=== PATIENT | female | born 1930 | race Caucasian/White ===

== ENCOUNTER 2017-04-17 12:27 | Observation (INO) | payer MEDICARE ==
--- NOTE | 2017-04-17 14:34 | RAD ---
HISTORY: Right calf pain COMPARISONS: None relevant TECHNIQUE: Multiple transverse and longitudinal ultrasound images were obtained of the right lower extremity from the level of the common femoral vein inferiorly through to the infrapopliteal veins using grayscale, color Doppler, and spectral Doppler imaging with and without compression and with augmentation. Comparison images were obtained of the contralateral common femoral vein. FINDINGS: VEINS: The venous system of the right lower extremity is compressible throughout its course, with normal flow on color Doppler imaging and normal response to augmentation on spectral Doppler imaging. SOFT TISSUES: Unremarkable. OTHER FINDINGS: None. IMPRESSION: NO RIGHT LOWER EXTREMITY DEEP VEIN THROMBOSIS
[2017-04-17] MEDS ORDERED: traMADol TAB* 50 MG PO ONE (14:51)
--- NOTE | 2017-04-17 14:53 | RAD ---
HISTORY: Unable to ambulate COMPARISONS: None VIEWS: 1, Single frontal view of the pelvis FINDINGS: BONE DENSITY: There is diffuse osteopenia. BONES: There is no displaced fracture. JOINTS: There is osteoarthritis of the hips and SI joints ALIGNMENT: There is no dislocation. SOFT TISSUES: Unremarkable. OTHER FINDINGS: None. IMPRESSION: OSTEOARTHRITIS. NO ACUTE OSSEOUS INJURY. IF SYMPTOMS PERSIST, RECOMMEND REPEAT IMAGING.
--- NOTE | 2017-04-17 14:54 | RAD ---
HISTORY: Right leg pain, unable to ambulate COMPARISONS: None VIEWS: 3, frontal and lateral views of the right foreleg FINDINGS: BONE DENSITY: There is diffuse osteopenia. BONES: There is osteoarthritis of the knee and ankle JOINTS: There is no arthropathy. ALIGNMENT: There is no dislocation. SOFT TISSUES: Unremarkable. OTHER FINDINGS: None. IMPRESSION: OSTEOPENIA. OSTEOARTHRITIS. NO ACUTE OSSEOUS INJURY. THE DEGREE OF OSTEOPENIA MAY MAKE A NONDISPLACED FRACTURE RADIOGRAPHICALLY OCCULT. IF SYMPTOMS PERSIST, RECOMMEND REPEAT IMAGING.
--- NOTE | 2017-04-17 14:55 | RAD ---
HISTORY: Right leg pain, unable to ambulate COMPARISONS: Pelvis dated April 17, 2017 VIEWS: 4, Frontal and lateral views of the right femur FINDINGS: BONE DENSITY: There is diffuse osteopenia. BONES: There is no displaced fracture. JOINTS: There is osteoarthritis of the right hip and right knee. ALIGNMENT: There is no dislocation. SOFT TISSUES: Unremarkable. OTHER FINDINGS: None. IMPRESSION: OSTEOPENIA. NO RADIOGRAPHIC EVIDENCE FOR HIP FRACTURE. X-RAYS MAY BE NEGATIVE WITH NONDISPLACED HIP FRACTURE, IF THERE IS PERSISTENT CLINICAL CONCERN, RECOMMEND CONSIDERATION OF MRI. IN THE SETTING OF CONTRAINDICATION TO MRI OR LIMITATION IN EMERGENT ACCESS TO MRI, CT WOULD BE SUGGESTED.
--- NOTE | 2017-04-17 16:09 | RAD ---
HISTORY: Proximal tibial pain COMPARISONS: None TECHNIQUE: Multiple contiguous axial CT images are obtained of the right lower extremity, from the distal femur through the proximal tibia covering the knee, with coronal and sagittal multiplanar reconstructions, without intravenous contrast administration. FINDINGS: BONE DENSITY: There is diffuse osteopenia. BONES: There is no displaced fracture. JOINTS: There is tricompartmental osteoarthritis. There is no suprapatellar joint effusion or lipohemarthrosis. There is chondrocalcinosis. MUSCULATURE: Unremarkable ALIGNMENT: There is no dislocation. SOFT TISSUES: Unremarkable. OTHER FINDINGS: None. IMPRESSION: 1. OSTEOPENIA. 2. OSTEOARTHRITIS. 3. CHONDROCALCINOSIS. 4. NO ACUTE OSSEOUS INJURY. IF SYMPTOMS PERSIST, RECOMMEND REPEAT IMAGING.
[2017-04-17] MEDS ORDERED: traMADol TAB* 50 MG PO PRN (17:45)
[2017-04-17] MEDS ORDERED: Acetaminophen TAB* 325 MG PO PRN (17:48)
--- NOTE | 2017-04-17 18:32 | ED ---
Zion Cole Rebecca, scribed for Jakob Pérez MD on 04/17/17 at 1302 . Lower Extremity - HPI Summary HPI Summary: Pt is an 86 y/o F who presents to ED c/o R calf pain. Per daughter, pain began 2 days ago, worsening today. Starting this morning, she was unable to walk due to the pain. Pain is discrete to the R calf without radiation to the buttock or back. Daughter applied heat for 20 minutes 2 days ago, which did not alleviate sx. Sx aggravated by walking, alleviated by rest. Is not on any blood thinners. - History of Current Complaint Chief Complaint: EDHipPelvisInjury Stated Complaint: UNABLE TO WALK Time Seen by Provider: 04/17/17 12:34 Hx Obtained From: Patient, Family/Manager English - Daughter Onset of Pain: Days - 2 days Onset/Duration: Still Present Pain Intensity: 0 Location: Is Discrete @ - R calf without radiation Aggravating Factor(s): Standing Alleviating Factor(s): Rest Able to Bear Weight: No - Allergies/Home Medications Allergies/Adverse Reactions: Allergies Allergy/AdvReac Type Severity Reaction Status Date / Time PACEMAKER-NO MRIs Allergy PACEMAKER-NO Uncoded 10/24/15 13:57 MRIs PMH/Surg Hx/FS Hx/Imm Hx Endocrine/Hematology History: Denies: Hx Diabetes Cardiovascular History: Reports: Hx Coronary Artery Disease, Hx Hypercholesterolemia, Hx Hypertension, Hx [facility] - NO MRIs, Other Cardiovascular Problems/Disorders - LBBB GI History: Reports: Hx Gall Bladder Disease History: Reports: Hx Kidney Stones Sensory History: Reports: Hx Cataracts, Hx Contacts or Glasses - GLASSES, Hx Hearing Problem - pt is [place] Denies: Hx Hearing Aid - HARD OF HEARING- OK IF TALK SLOW AND NOT SCREAM Opthamlomology History: Reports: Hx Cataracts, Hx Contacts or Glasses - GLASSES - Surgical History Surgery Procedure, Year, and Place: [id number]. APPENDECTOMY. [facility] 1977,. BLADDER SUSPENSION 1987. [place] [facility] [place] Anesthesia Reactions: No - Immunization History Date of Tetanus Vaccine: unknown Date of Influenza Vaccine: 2-3 years ago Infectious Disease History: No Infectious Disease History: Denies: Traveled Outside the [place] in Last 30 Days - Family History Known Family History: Positive: Cardiac Disease, Other - Brain CA, CVA - Social History Alcohol Use: None Substance Use Type: Reports: None Smoking Status (MU): Former Smoker Type: Cigarettes Amount Used/How Often: 1 PPD OR LESS X 20 YEARS Have You Smoked in the Last Year: No Review of Systems Negative: Fever Positive: Myalgia - R calf pain without radiation All Other Systems Reviewed And Are Negative: Yes Physical Exam - Summary Physical Exam Summary: General: well-appearing, no pain distress Skin: warm, color reflects adequate perfusion, dry Head: normal Eyes: EOMI, [place] ENT: She is hard of hearing Neck: supple, nontender Respiratory: CTA, breath sounds present Cardiovascular: RRR Abdomen: soft, nontender Bowel: present Musculoskeletal: strength/ROM intact, tender in the upper calf, the knee does not appear swollen, pain with ROM of the R leg with good capillary refill Neurological: normal, sensory/motor intact, A&O x3 Psychological: affect/mood appropriate Triage Information Reviewed: Yes Vital Signs On Initial Exam: Initial Vitals Temp Pulse Resp BP Pulse Ox 97.5 F 69 18 139/71 95 04/17/17 12:31 04/17/17 12:31 04/17/17 12:31 04/17/17 12:31 04/17/17 12:31 Vital Signs Reviewed: Yes - Merna Coma Scale Coma Scale Total: 15 Diagnostics - Vital Signs Vital Signs Temp Pulse Resp BP Pulse Ox 04/17/17 12:31 97.5 F 69 18 139/71 95 - Laboratory Lab Statement: Any lab studies that have been ordered have been reviewed, and results considered in the medical decision making process. - Radiology R Femur XR Xray Interpretation: No Acute Changes - OSTEOPENIA. NO RADIOGRAPHIC EVIDENCE FOR HIP FRACTURE. X-RAYS MAY BE NEGATIVE WITH NONDISPLACED HIP FRACTURE, IF THERE IS PERSISTENT CLINICAL CONCERN, RECOMMEND CONSIDERATION OF MRI. IN THE SETTING OF CONTRAINDICATION TO MRI OR LIMITATION IN EMERGENT ACCESS TO MRI, CT WOULD BE SUGGESTED. Radiology Interpretation Completed By: Radiologist R Lower Leg XR Xray Interpretation: No Acute Changes - OSTEOPENIA. OSTEOARTHRITIS. NO ACUTE OSSEOUS INJURY. THE DEGREE OF OSTEOPENIA MAY MAKE A NONDISPLACED FRACTURE RADIOGRAPHICALLY OCCULT. IF SYMPTOMS PERSIST, RECOMMEND REPEAT IMAGING. Radiology Interpretation Completed By: Radiologist Pelvic XR Xray Interpretation: No Acute Changes - OSTEOARTHRITIS. NO ACUTE OSSEOUS INJURY. IF SYMPTOMS PERSIST, RECOMMEND REPEAT IMAGING. Radiology Interpretation Completed By: Radiologist - CT Right LE CT CT Interpretation: No Acute Changes - 1. OSTEOPENIA. 2. OSTEOARTHRITIS. 3. CHONDROCALCINOSIS. 4. NO ACUTE OSSEOUS INJURY. IF SYMPTOMS PERSIST, RECOMMEND REPEAT IMAGING. CT Interpretation Completed By: Radiologist - Ultrasound No standard instances Ultrasound Interpretation: No Acute Changes - Venous Doppler Study: NO RIGHT LOWER EXTREMITY DEEP VEIN THROMBOSIS Ultrasound Interpretation Completed By: Radiologist Re-Evaluation - Re-Evaluation First Eval Re-Evaluation Time: 14:46 Comment: Discussed venous doppler study results with the pt. Second Eval Re-Evaluation Time: 15:24 Comment: Discussed XR results with the pt. Lower Extremity Course/Dx - Course Assessment/Plan: Pt is an 86 y/o F who presents to ED c/o R calf pain. Per daughter, pain began 2 days ago, worsening today. Starting this morning, she was unable to walk due to the pain. Pain is discrete to the R calf without radiation to the buttock or back. Daughter applied heat for 20 minutes 2 days ago, which did not alleviate sx. Sx aggravated by walking, alleviated by rest. Is not on any blood thinners. Venous doppler study, R femur XR, R lower leg XR and pelvic XR all reveal no acute findings. Right LE CT reveals no acute findings. In the ED course, pt was administered Ultram. Discussed care of pt with Dr. Lenore Babin who accepts pt for admission. PATIENT UNABLE TO AMBULATE. DAUGHTER REPORTS SHE IS UNABLE TO CARE FOR HER MOTHER AT HOME. ADMIT HOSPITALIST STABLE. - Diagnoses Provider Diagnoses: Leg pain, right, Unable to ambulate - Physician Notifications Discussed Care Of Patient With: Lenore Babin Time Discussed With Above Provider: 16:58 Instructed by Provider To: Other - Accepts pt for admission Discharge - Discharge Plan Condition: Stable Disposition: ADMITTED TO [facility] Referrals: Frederick Gallardo DO [Primary Care Provider] - The documentation as recorded by the Zion triana Rebecca accurately reflects the service I personally performed and the decisions made by me, Jakob Pérez MD.
[2017-04-17] MEDS ORDERED: Gabapentin CAP(*) 300 MG PO ONE (20:00)
[2017-04-17] MEDS: traMADol TAB* 50 MG PO PRN (20:07)
[2017-04-17] MEDS: Metoprolol Tartrate TAB* 25 MG PO SCH (20:09)
--- NOTE | 2017-04-17 22:12 | HP ---
CC: Frederick Gallardo DO HISTORY AND PHYSICAL: DATE OF ADMISSION: 04/17/17 PRIMARY CARE PHYSICIAN: Frederick Gallardo DO CHIEF COMPLAINT: Right lower extremity pain. HISTORY OF PRESENT ILLNESS: Ms. Javier is an 86-year-old female with a past medical history of atri al fibrillation, status post pacemaker placement, left bundle-branch block, psoriasis, presented to the hospital with right lower extremity pain. The patient is hard of hearing. History is obtained from her and her daughter, Kaitlyn, who is at the bedside and lives with the patient. Apparently, th e patient was in her usual state of health until about 2 to 3 days ago. The patient's daughter stat es that the patient started to complain of right posterior leg pain, some on the calf area. At firs t, this was just mild and annoying; however, in the past couple of days, it seems to have progressed . The patient did not have any trauma and there is no erythema or swelling on the leg. She has been taking Tylenol at home that the patient states seemed to help although the daughter does not feel t hat it did. Yesterday, they had tried a heating pad and the patient reclined for the lot of the day and was resting. However, the pain progressed and this morning she states it was difficult to even walk, so she came to the hospital for further evaluation. The patient has not had any associated f conchita, chest pain, shortness of breath, swelling of the legs. She has been eating a bit less in the past month, but has been drinking well. No nausea or vomiting. PAST MEDICAL HISTORY: AFib, status post pacemaker placement; left bundle-branch block; psoriasis. PAST SURGICAL HISTORY: Cataract removal, cholecystectomy, bladder suspension, ovarian tumor resecti on. HOME MEDICATIONS: Metoprolol 25 mg by mouth 2 times daily. ALLERGIES: The patient has no known drug allergies. FAMILY HISTORY: None. SOCIAL HISTORY: The patient is a former smoker, quit over 30 years ago. No current alcohol use. H owever, used to drink heavily when she was younger. Denies any illicit drug use. REVIEW OF SYSTEMS: A 12-point review of systems negative except for that as noted in the HPI. PHYSICAL EXAMINATION GENERAL: The patient is an elderly, obese, female, lying in bed, in no apparent distress. VITAL SIGNS: On admission, temperature 97.5, heart rate 69, respiratory rate 18, O2 saturation 95% on room air, blood pressure 139/71. HEENT: Head normocephalic, atraumatic. Eyes, pupils equal, round, and reactive to light and accomm odation. Anicteric sclerae. ENT: Dry mucous membranes. No cervical adenopathy. CARDIOVASCULAR: Regular rate and rhythm. S1 and S2 present. Systolic ejection murmur. ABDOMEN: Obese, soft, nontender, nondistended. Bowel sounds positive. EXTREMITIES: No cyanosis, clubbing or edema. SKIN: The patient has psoriatic plaques, particularly on the lower extremities. MUSCULOSKELETAL: The patient reports pain with active and passive hip flexion and buttocks that rad iates down the leg. Some mild tenderness in SI joints bilaterally. Strength in the lower extremiti es is intact. No focal deficits. LABORATORY DATA AND DIAGNOSTIC STUDIES: Right lower extremity venous Doppler shows no right lower extremity DVT. Right femur x-ray shows osteopenia. No radiographic evidence for hip fracture. Low er extremity x-ray, osteopenia, osteoarthritis. No acute osseous injury. Pelvic x-ray, osteoarthri tis, no acute osseous injury. Lower extremity CT scan, osteopenia, osteoarthritis, chondrocalcinosis , no acute osseous injury. ASSESSMENT AND PLAN: Right lower extremity pain, seems to be most consistent with radiculopathy in an 86-year-old female with a past medical history of atrial fibrillation, status post pacemaker plac ement, psoriasis. 1. Right lower extremity pain consistent with radiculopathy. We will start the patient on gabapent in. We will give 300 mg tonight and 200 mg b.i.d. starting tomorrow. We will also provide her with Tylenol and tramadol as needed. I will order PT. Hopefully, the patient will improve and I expect tomorrow to be able to go home. 2. History of atrial fibrillation, status post pacemaker placement. The patient is not currently o n anticoagulation, seems to be in sinus rhythm on exam. We will continue the patient's home metopro lol for now. 3. DVT prophylaxis, heparin subcu. TIME SPENT: Total time spent on this admission 40 minutes with over half the time spent face-to-fac e with the patient in counseling and coordinating care. [id number]/[facility] #: [id number]
[2017-04-17] MEDS: Heparin VIAL(*) 5000 UNITS/ML VIAL (FIVE THOUSAND) SUBCUT SCH (22:30)
[2017-04-18 01:03] LABS: Hematocrit 41 % (35-47); Hemoglobin 13.8 g/dl (12.0-16.0); Mean Corpuscular HGB Conc 34 g/dl (31-36); Mean Corpuscular Hemoglobin 36 pg (27-31); Mean Corpuscular Volume 105 fL (80-97); Mean Platelet Volume 9 um3 (7.4-10.4); Red Blood Count 3.88 10^6/ul (4.0-5.4); Red Cell Distribution Width 17 % (10.5-15); White Blood Count 5.2 10^3/ul (3.5-10.8)
[2017-04-18 01:09] LABS: Urine Bacteria Absent (Absent); Urine Bilirubin Negative (Negative); Urine Glucose Negative (Negative); Urine Nitrite Negative (Negative)
[2017-04-18 01:15] LABS: Albumin 3.3 g/dL (3.2-5.2); BUN/Creatinine Ratio 22.5 (8-20); Calcium 9.9 mg/dL (8.6-10.3); EGFR African American 100.1 (>60); EGFR Non-African American 77.9 (>60); Total Bilirubin 2.9 mg/dL (0.2-1.0); Total Protein 6.3 g/dL (6.4-8.9)
[2017-04-18] MEDS: Heparin VIAL(*) 5000 UNITS/ML VIAL (FIVE THOUSAND) SUBCUT SCH ×2 (06:05→14:39)
[2017-04-18] MEDS: traMADol TAB* 50 MG PO PRN ×3 (06:07→15:31)
[2017-04-18] MEDS: Metoprolol Tartrate TAB* 25 MG PO SCH (08:09)
[2017-04-18] MEDS ORDERED: Gabapentin CAP(*) 100 MG PO SCH (09:00)
[2017-04-18] MEDS ORDERED: Loperamide CAP* 2 MG PO PRN (09:29)
[2017-04-18 11:32] VITALS: BP 142/59
[2017-04-18] MEDS ORDERED: Gabapentin CAP(*) 100 MG PO ONE (13:51)
--- NOTE | 2017-04-18 13:59 | DCNOTE ---
Patient seen this morning and again in the afternoon. Patient was able to ambulate on her own with walker this morning with pain, in the afternoon after some additional pain medications was able to walk with no pain. On exam, RRR, s1 and s2 present, no m/g/r, no wheezing appreciated on exam, pain with straight leg raise Labs reviewed from yesterday, patient has had evidence of cirrhosis on previous abdominal imaging and labs reflect this. Will discharge home with pain medications and VNS services.
--- NOTE | 2017-04-19 03:52 | DS ---
CC: Dr. Gallardo * DISCHARGE SUMMARY: DATE OF ADMISSION: 04/17/17 DATE OF DISCHARGE: 04/18/17 PRIMARY CARE PHYSICIAN: Dr. Gallardo. PRINCIPAL DISCHARGE DIAGNOSIS: Right lower extremity pain likely due to lumbosacral radiculopathy. SECONDARY DIAGNOSES: 1. Atrial fibrillation, status post pacemaker placement. 2. Psoriasis. DISCHARGE MEDICATION REGIMEN: 1. Metoprolol 25 mg by mouth 2 times daily. 2. Tramadol 25 mg by mouth every 4 hours as needed for pain. 3. Gabapentin 200 mg by mouth 2 times daily. STUDIES DONE DURING HOSPITALIZATION: 1. Right lower extremity Doppler, impression: No right lower extremity DVT. 2. Right femur x-ray, impression: Osteopenia. No radiographic evidence for hip fracture. 3. Right lower leg x-ray, impression: Osteopenia, osteoarthritis. No acute osseous injury. 4. Pelvis x-ray, impression: Osteoarthritis. No acute osseous injury. 5. CT of the right lower extremity, impression: Osteopenia, osteoarthritis, chondrocalcinosis. No acute osseous injury. HISTORY OF PRESENT ILLNESS: Ms. Javier is an 86-year-old female with a past medical history as above, who presented to the hospital with progressive right buttock pain radiating down the leg that seemed to have progressed over the days prior to admission to the point where she had difficulty walking around. The patient had a number of imaging studies done in the emergency department that found no evidence of any sort of a fracture. Based on my exam, it was felt that the patient likely had some sciatic nerve pain. She was started on gabapentin and a low dose of tramadol with improvement in her symptoms. By the following day, she was able to ambulate on her own with a walker and the pain was much improved. She will be discharged home with pain medications and additional VNS services. TIME SPENT: Total time spent on this discharge, 45 minutes. This is a summary of the hospitalization. Please see the full medical record for further details. [id number]/[facility] #: [id number] MTDD
== END 2017-04-18 15:30 | disposition home or self-care (01) ==
LOC: ED 12:27 → MED 17:13
PROVIDERS: ADMIT Hospitalist; ATTEND Hospitalist
DX: M79.604 Pain in right leg (principal); M54.17 Radiculopathy, lumbosacral region; I48.91 Unspecified atrial fibrillation; Z79.01 Long term (current) use of anticoagulants; Z95.0 Presence of cardiac pacemaker; L40.9 Psoriasis, unspecified; M85.88 Other specified disorders of bone density and structure, other site; M19.90 Unspecified osteoarthritis, unspecified site; Z87.891 Personal history of nicotine dependence; I10 Essential (primary) hypertension; I25.10 Atherosclerotic heart disease of native coronary artery without angina pectoris; Z95.5 Presence of coronary angioplasty implant and graft
CPT/HCPCS: 36415; 72170; 80053; 81003; 81015; 83880; 85027; 85610; 85730; 87086; 99284; A9270-GY; G0378; G8978-GP-CL; G8979-GP-CJ; J1644

== ENCOUNTER 2017-05-04 11:53 | Inpatient (IN) | payer MEDICARE ==
[2017-05-04 13:41] LABS: Hematocrit 42 % (35-47); Hemoglobin 14.4 g/dl (12.0-16.0); Mean Corpuscular HGB Conc 34 g/dl (31-36); Mean Corpuscular Hemoglobin 36 pg (27-31); Mean Corpuscular Volume 104 fL (80-97); Mean Platelet Volume 8 um3 (7.4-10.4); Red Blood Count 4.05 10^6/ul (4.0-5.4); Red Cell Distribution Width 17 % (10.5-15); White Blood Count 5.7 10^3/ul (3.5-10.8)
--- NOTE | 2017-05-04 13:52 | RAD ---
Indication: Weakness. Single frontal view of the chest performed at 1317 hours was reviewed. Comparison is made with previous exam dated March 02, 2009. No mediastinal shift is noted. Heart is of normal size and configuration. Lung sandhu appear clear. Pacemaker leads are in place. IMPRESSION: NO ACTIVE CARDIOPULMONARY DISEASE IS NOTED.
[2017-05-04 14:09] LABS: Albumin 3.1 g/dL (3.2-5.2); Calcium 10.1 mg/dL (8.6-10.3); EGFR African American 121.3 (>60); EGFR Non-African American 94.3 (>60); Globulin 3.1 g/dL (2-4); Potassium 3.9 mmol/L (3.5-5.0); Total Bilirubin 2.1 mg/dL (0.2-1.0); Total Protein 6.2 g/dL (6.4-8.9)
[2017-05-04 14:24] LABS: Urine Bilirubin Negative (Negative); Urine Glucose Negative (Negative); Urine Nitrite Negative (Negative)
--- NOTE | 2017-05-04 14:56 | RAD ---
INDICATION: Atraumatic right knee pain COMPARISON: None TECHNIQUE: AP, lateral, tunnel, and sunrise views were obtained. FINDINGS: There is minor spurring tibial spines and minor medial joint space narrowing. There is no acute bony change. There is chondrocalcinosis. IMPRESSION: MILD DEGENERATIVE CHANGE ABOUT THE KNEE WITH CHONDROCALCINOSIS.
--- NOTE | 2017-05-04 15:24 | RAD ---
INDICATION: Pain and swelling. COMPARISON: Right knee same date TECHNIQUE: Duplex interrogation of the right lowerextremity was performed. FINDINGS: Deep veins: The common femoral, great saphenous, profunda femoris, proximal, mid, and distal deep femoral, popliteal, posterior tibial, and peroneal veins are patent. There is normal compressibility, augmentation, and phasic flow. Superficial veins: There are no findings of superficial thrombophlebitis. Popliteal fossa:There is no evidence of a popliteal cyst. Soft tissues:There are no soft tissue abnormalities. IMPRESSION: Normal examination. No evidence of deep venous thrombosis
[2017-05-04] MEDS ORDERED: Acetaminophen TAB* 325 MG PO PRN (15:32)
[2017-05-04] MEDS ORDERED: Ondansetron INJ* 2 MG/ML VIAL IV PRN (15:32)
[2017-05-04] MEDS ORDERED: HYDROcodone/ACETAMIN 5-325 MG* 1 TAB PO PRN (15:32)
--- NOTE | 2017-05-04 16:42 | RAD ---
Indication: Difficulty ambulating due to RIGHT leg pain. Comparison: July 04, 2015 CT. Technique: Noncontrast CT lumbar sacral spine. Multiplanar reformation. Report: Partially visualized kidneys are remarkable for a 3 mm nonobstructing mid pole calyceal stone at the LEFT kidney. Atherosclerotic calcification of normal diameter abdominal aorta and iliac arteries. 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 Mild T12 anterior column compression deformity is chronic. No acute or subacute fracture or spondylolysis. Negative for spondylolisthesis at any level. T12-L1: Degenerative spondylosis and facet joint osteoarthritis without significant acquired spinal stenosis. L1-L2: Mild annular disc bulge and facet joint osteoarthritis. No significant acquired spinal stenosis. L2-L3: Mild annular disc bulge and facet joint osteoarthritis with facet joint osteoarthritis advanced on the RIGHT. No significant acquired spinal stenosis. L3-L4: Asymmetric narrow disc space reflecting congenital anomaly. Negative for LEFT foraminal stenosis. Degenerative spondylosis and facet joint osteoarthritis with ankylosis results in moderate RIGHT foraminal stenosis. L4-L5: Congenital anomaly with L4 hemivertebral body. Mild degenerative spondylosis. Negative for acquired central canal stenosis. Negative for significant LEFT foraminal stenosis. No RIGHT side L4-L5 foramina visualized. L5-S1: Mild degenerative spondylosis. Scoliosis resulting from the congenital anomaly at L4 results in mild acquired central canal stenosis. Degenerative spondylosis and facet joint osteoarthritis results in moderate RIGHT and severe LEFT foraminal stenosis. IMPRESSION: 1. Partially visualized kidneys are remarkable for a 3 mm nonobstructing mid pole calyceal stone at the LEFT kidney. 2. Congenital L4 hemivertebrae. 3. Multilevel degenerative spondylosis and facet joint osteoarthritis with associated acquired spinal stenosis as described without significant interval change.
[2017-05-04] MEDS: Lidocaine PATCH 5%* 1 PATCH TRANSDERM SCH (17:01)
[2017-05-04] MEDS: amLODIPine TAB* 5 MG PO SCH (17:11)
--- NOTE | 2017-05-04 19:21 | HP ---
CC: Dr. Gallardo * HISTORY AND PHYSICAL: DATE OF ADMISSION: 05/04/17 PRIMARY CARE PROVIDER: Dr. Gallardo. ATTENDING PHYSICIAN WHILE IN THE HOSPITAL: Lenore Babin DO * (report dictated by Otto Claros NP). CHIEF COMPLAINT: Right leg pain. HISTORY OF PRESENT ILLNESS: Mrs. Javier is an 87-year-old female patient who recently was here from 04/17/17 to 04/18/17 with similar complaints of right leg pain. She describes today having pain again shooting down the right leg. She says she has some numbness in her right foot and also it is difficult to elicit if she has got numbness on the lateral or medial aspect of her right lower extremity, but she said she is having some numbness. In addition to this , she states that she has been having difficulty with walking. The daughter who lives with her said that she notices when she gets up and walks, she has more pain. She denies having any recent traumas or falls. Denies having any chest pain or shortness of breath. No fevers or chills. No abdominal pain. She denies having any back pain, but she describes the pain as a shooting pain. She denies having any weakness. She just states she is limited by her mobility because of the pain. The daughter has noticed over the last couple of days she has had progressive worsening pain and it has been affecting her ability to walk. She noticed yesterday that she could only walk to her bedroom door where as normally she can at least walk to the kitchen and she does that 2 to 3 times a day. Yesterday, she could only walk to the bathroom door and then today she could barely get out of bed because of the pain. She, at that point, came into the ER to be evaluated. She, again, denies any fevers or chills. No recent changes in medications since her being discharged on 04/18/17. She was evaluated in the ED. There was concern because of intractable pain and possible lumbar radiculopathy. We were asked to evaluate for admission. PAST MEDICAL HISTORY: Significant for: 1. Atrial fibrillation. 2. Left bundle-branch block. 3. Psoriasis. PAST SURGICAL HISTORY: 1. The patient had pacemaker placement. 2. Cataract extraction. 3. Cholecystectomy. 4. Bladder suspension. 5. Ovarian tumor removal. MEDICATIONS: Home meds according to her list include: 1. Gabapentin 200 mg p.o. b.i.d. 2. Lopressor 25 mg p.o. b.i.d. 3. Tramadol 25 mg p.o. every 4 hours as needed. ALLERGIES TO MEDICATIONS: Include no known drug allergies. FAMILY HISTORY: She specifically denied her parents having any history of strokes, cancers, diabetes or coronary artery disease. She said her father at the age of 95. SOCIAL HISTORY: She is a former smoker, she quit many years ago. She does not drink alcohol anymore. Surrogate decision maker is her daughter. REVIEW OF SYSTEMS: There is no documented fever. She denied having any significant weight change. There was no double vision. There is no ear discharge. She denied having any rhinorrhea. There is no sore throat. No thyroid enlargement. Denies having any chest pain. There is no orthopnea. No nocturnal dyspnea. There was no abdominal discomfort. No nausea, no vomiting, no dysuria, no frequency. There was no seizure, no loss of consciousness. No pruritus and no skin ulcerations. Review of 14 systems completed, all others negative. PHYSICAL EXAMINATION GENERAL: At this time, Mrs. Javier is an 87-year-old female patient. She appears to be chronically ill appearing, sitting in the ED stretcher. She does not appear to be in acute distress. VITAL SIGNS: Blood pressure 107/58, pulse 60, respirations 18, O2 sat 96% on room air, and temperature 98.2. HEENT: Head: Atraumatic, normocephalic. Eyes: EOMs intact. Sclerae are anicteric and not pale. Throat: Oral mucosa appears to be dry. No oropharyngeal erythema. NECK: Supple. LUNGS: Clear to auscultation. No wheezes, rales or rhonchi. HEART: Sounds S1 and S2. Regular rate and rhythm. No murmurs, rubs or gallops. ABDOMEN: Soft, flat, and nontender. Bowel sounds are present. EXTREMITIES: Pulses were 2+ throughout. She does have a positive straight leg lift on the right lower extremity. She got 5/5 strength with plantar and dorsiflexion. She does, on palpating the spine, have tenderness in the lumbar region, approximately at L4-L5 area. NEUROLOGIC: She is awake, alert. She is hard of hearing, which limits the neurological evaluation. She is alert and oriented x3. She has no gross focal deficits. SKIN: Intact. She does have bilateral lower extremity erythematous plaque, which appear to be consistent with her psoriasis. LABORATORY DATA/DIAGNOSTIC STUDIES: Her labs today reveal a WBC of 5.7, RBC of 4.05, hemoglobin of 14.4, hematocrit of 42, platelet count [id number]. INR is 1.31, PTT of 39.0. Sodium is 139, potassium is 3.9, chloride of 108, bicarb 25 , BUN 18, creatinine 0.60, glucose 104. Lactate 1.5. Calcium 10.1. Total bili 2.1, AST 46, ALT 45, alk phos 116. Troponin 0. Urine shows positive urobilinogen. She did have a knee x-ray obtained today, which revealed mild degenerative changes about the knee with chondrocalcinosis. Chest x-ray obtained today showed no active cardiopulmonary disease. EKG showed atrial sensed ventricular paced rhythm, rate of 57. Old medical records were reviewed. ASSESSMENT AND PLAN: Mrs. Javier is an 87-year-old female patient with multiple medical problems, coming into the ER today with complaints of right leg pain. On evaluation, there was concern that she would not be able to care for herself and there was also concern that she had intractable pain. We were asked to evaluate for admission. She will be admitted under inpatient status for: 1. Lumbar radiculopathy. I do not see this being cleared up in an observation stay. The patient was just here on observation; she failed, went home, and had exacerbation of her lumbar radiculopathy. I think she needs a CT of her abdomen and pelvis to try to assess the degree of stenosis. Unfortunately, she cannot have an MRI because of the pacemaker. I do think she needs PT/OT. She is probably going to need prolonged PT care at a subacute facility. She has no support at home. In addition to this, she has significant amount of pain, which is affecting her daily living. She is going to at least need a 2 to 3- day stay to get the pain under control. I am starting steroids, going to put her on a Lidoderm patch, starting narcotics now, and increasing her pain management strategy. Continue on the gabapentin. We will continue to follow her and get PT evaluation. 2. Atrial fibrillation with left bundle-branch block. Continue her metoprolol. 3. Psoriasis. Continue with her current medical regimen. 4. Deep vein thrombosis prophylaxis. She is high risk, I will place her on heparin subcu. 5. Code status. She is a full code. 6. Fluids, electrolytes, and nutrition. She can have a regular diet. TIME SPENT: Time spent on the admission was approximately 60 minutes, greater than half of the time was spent [id number] with the patient obtaining my history and physical, the other half of the time was spent going over the plan of care with the patient and implementing plan of care. I did discuss the plan of care with my attending, Dr. Babin, she is in agreement. OTTO CLAROS, [place] [id number]/[facility] #: [id number] MTDD
[2017-05-04] MEDS: Lidocaine Patch REMOVE* 1 NOTE MISC SCH (21:37)
[2017-05-04] MEDS: Gabapentin CAP(*) 100 MG PO SCH (21:47)
[2017-05-04] MEDS: Metoprolol Tartrate TAB* 25 MG PO SCH (21:48)
[2017-05-04] MEDS: Nystatin TOP POWDER* 15 GM BTL TOPICAL SCH (21:48)
[2017-05-04] MEDS: Heparin VIAL(*) 5000 UNITS/ML VIAL (FIVE THOUSAND) SUBCUT SCH (21:48)
[2017-05-05 04:57] LABS: Hematocrit 38 % (35-47); Hemoglobin 12.8 g/dl (12.0-16.0); Mean Corpuscular HGB Conc 34 g/dl (31-36); Mean Corpuscular Hemoglobin 35 pg (27-31); Mean Corpuscular Volume 104 fL (80-97); Mean Platelet Volume 8 um3 (7.4-10.4); Red Blood Count 3.66 10^6/ul (4.0-5.4); Red Cell Distribution Width 17 % (10.5-15)
[2017-05-05 05:10] LABS: BUN/Creatinine Ratio 34.4 (8-20); Calcium 9.7 mg/dL (8.6-10.3); EGFR Non-African American 92.6 (>60); Potassium 4.1 mmol/L (3.5-5.0)
[2017-05-05] MEDS: Heparin VIAL(*) 5000 UNITS/ML VIAL (FIVE THOUSAND) SUBCUT SCH ×3 (05:48→21:25)
[2017-05-05] MEDS: Lidocaine PATCH 5%* 1 PATCH TRANSDERM SCH (09:48)
[2017-05-05] MEDS: Nystatin TOP POWDER* 15 GM BTL TOPICAL SCH ×3 (09:51→21:19)
[2017-05-05] MEDS: Gabapentin CAP(*) 100 MG PO SCH ×2 (09:53→21:19)
[2017-05-05] MEDS: Metoprolol Tartrate TAB* 25 MG PO SCH ×2 (09:54→21:21)
[2017-05-05] MEDS: amLODIPine TAB* 5 MG PO SCH (09:54)
[2017-05-05] MEDS: predniSONE TAB* 20 MG PO SCH (09:54)
[2017-05-05 15:03] LABS: Urine Bacteria 1+ (Absent); Urine Bilirubin Negative (Negative); Urine Glucose Negative (Negative); Urine Nitrite Negative (Negative)
[2017-05-05] MEDS ORDERED: cefTRIAXone VIAL(*) 1,000 MG in NS 0.9% 50 ML* 50 ML IVPB SCH (16:00)
--- NOTE | 2017-05-05 18:29 | PN ---
Subjective Date of Service: 05/05/17 Interval History: Pt is unreliable historian, very [place]. Can't relate last time she walked despite asking 4 times. Does attest to increased pain with ambulation. Daughter visited briefly but gone by time provider returned. Urinary hesitancy. Describes sciaticia like pain. Objective Active Medications: Acetaminophen (Tylenol Tab*) 650 mg PO Q4H PRN PRN Reason: FEVER/PAIN Hydrocodone Bitart/Acetaminophen ([place] 5-325 Tab*) 1 tab PO Q4H PRN PRN Reason: PAIN Amlodipine Besylate (Norvasc Tab*) 5 mg PO DAILY [facility] Last Admin: 05/05/17 09:54 Dose: 5 mg Gabapentin (Neurontin Cap(*)) 200 mg PO BID [facility] Last Admin: 05/05/17 09:53 Dose: 200 mg Heparin Sodium (Porcine) (Heparin Vial(*)) 5,000 units SUBCUT Q8HR [facility] Last Admin: 05/05/17 14:41 Dose: 5,000 units Ceftriaxone Sodium 1,000 mg/ (Sodium Chloride) 50 mls @ 200 mls/hr IVPB Q24H [facility] Last Admin: 05/05/17 16:09 Dose: 200 mls/hr Lidocaine (Lidoderm 5% Patch*) 1 patch TRANSDERM DAILY [facility] Last Admin: 05/05/17 09:48 Dose: 1 patch Metoprolol Tartrate (Lopressor Tab*) 25 mg PO BID [facility] Last Admin: 05/05/17 09:54 Dose: 25 mg Nystatin (Nystatin Top Powder*) 1 applic TOPICAL TID [facility] Last Admin: 05/05/17 14:41 Dose: 1 unit Ondansetron HCl (Zofran Inj*) 4 mg IV Q6H PRN PRN Reason: NAUSEA Pharmacy Profile Note (Lidocaine Patch Remove*) 1 note N/A 2100 [facility] Last Admin: 05/04/17 21:37 Dose: Not Given Prednisone (Deltasone Tab*) 40 mg PO DAILY [facility] Last Admin: 05/05/17 09:54 Dose: 40 mg Vital Signs 05/04/17 05/04/17 05/04/17 19:48 21:47 23:32 Temperature 97.8 F 98.0 F Pulse Rate 59 61 Respiratory 20 20 16 Rate Blood Pressure 116/49 107/42 (mmHg) O2 Sat by Pulse 95 95 Oximetry 05/04/17 05/04/17 05/05/17 23:38 23:40 02:03 Temperature Pulse Rate Respiratory 18 16 Rate Blood Pressure (mmHg) O2 Sat by Pulse 95 Oximetry 05/05/17 05/05/17 05/05/17 03:50 08:00 08:04 Temperature 98.6 F 98.5 F Pulse Rate 57 63 Respiratory 20 20 20 Rate Blood Pressure 100/32 121/50 (mmHg) O2 Sat by Pulse 93 94 92 Oximetry 05/05/17 05/05/17 05/05/17 09:40 09:53 11:53 Temperature Pulse Rate 64 Respiratory 16 20 Rate Blood Pressure 116/56 (mmHg) O2 Sat by Pulse Oximetry Oxygen Devices in Use Now: None Appearance: Chronically ill appearing. Discheveled. Toe nails overgrown and covered in dirt. Eyes: No Scleral Icterus, PERRLA Ears/Nose/Mouth/Throat: NL Teeth, Lips, Gums, Clear Oropharnyx Neck: NL Appearance and Movements; NL JVP, Trachea Midline Respiratory: Symmetrical Chest Expansion and Respiratory Effort, Clear to Auscultation Cardiovascular: RRR - murmur apex, no rubs or ectopy Abdominal: NL Sounds; No Tenderness; No Distention, No Hepatosplenomegaly Extremities: No Clubbing, Cyanosis, - - trace edema Skin: - - previous venous stasis b/l hyperpigmentation with scale Neurological: - - Oriented to name and hospital. Thinks 2019. Nutrition: Taking PO's Result Diagrams: 05/05/17 04:46 05/05/17 04:46 Additional Lab and Data: Laboratory Results - last 24 hr 05/05/17 05/05/17 05/05/17 04:46 04:46 04:46 WBC 6.0 RBC 3.66 L Hgb 12.8 Hct 38 MCV 104 H MCH 35 H MCHC 34 RDW 17 H Plt Count 111 L MPV 8 Neut % (Auto) 48.9 Lymph % (Auto) 36.0 [place] % (Auto) 6.8 Eos % (Auto) 7.7 H Baso % (Auto) 0.6 Absolute Neuts (auto) 2.9 Absolute Lymphs (auto) 2.1 Absolute Monos (auto) 0.4 Absolute Eos (auto) 0.5 Absolute Basos (auto) 0 Absolute Nucleated RBC 0.01 Nucleated RBC % 0.1 INR (Anticoag Therapy) 1.35 H Sodium 140 Potassium 4.1 Chloride 109 Carbon Dioxide 27 Anion Gap 4 BUN 21 Creatinine 0.61 Est GFR ( Amer) 119.0 Est GFR (Non-Af Amer) 92.6 BUN/Creatinine Ratio 34.4 H Glucose 98 Calcium 9.7 Urine Color Urine Appearance Urine pH Ur Specific [place] Urine Protein Urine Ketones Urine Blood Urine Nitrate Urine Bilirubin Urine Urobilinogen Ur Leukocyte Esterase Urine WBC (Auto) Urine RBC (Auto) Ur Squamous Epith Cells Urine Bacteria Urine Glucose 05/05/17 11:58 WBC RBC Hgb Hct MCV MCH MCHC RDW Plt Count MPV Neut % (Auto) Lymph % (Auto) [place] % (Auto) Eos % (Auto) Baso % (Auto) Absolute Neuts (auto) Absolute Lymphs (auto) Absolute Monos (auto) Absolute Eos (auto) Absolute Basos (auto) Absolute Nucleated RBC Nucleated RBC % INR (Anticoag Therapy) Sodium Potassium Chloride Carbon Dioxide Anion Gap BUN Creatinine Est GFR ( Amer) Est GFR (Non-Af Amer) BUN/Creatinine Ratio Glucose Calcium Urine Color Yellow Urine Appearance Cloudy Urine pH 5.0 Ur Specific [place] 1.019 Urine Protein Negative Urine Ketones Negative Urine Blood Negative Urine Nitrate Negative Urine Bilirubin Negative Urine Urobilinogen Positive H Ur Leukocyte Esterase 1+ H Urine WBC (Auto) 1+(6-10/hpf) H Urine RBC (Auto) Trace(0-2/hpf) Ur Squamous Epith Cells Present H Urine Bacteria 1+ H Urine Glucose Negative Assess/Plan/Problems-Billing Assessment: 87 year old female PMH chronic sciaticia/radicular pain, LBBB, Afib, psoriasis presenting with increased pain with ambulation, hypertension (2/2 pain?) and concern for not being able to cared for in home environment. - Patient Problems (1) Sciatica of right side Current Visit: Yes Status: Acute Code(s): M54.31 - SCIATICA, RIGHT SIDE SNOMED Code(s): 30210953 Comment: Physical therapy. Degenerative disc disease but not likely candidate for spinal surgery. lidoderm patch (?refusing) prednisone gabapentin 200mg BID (2) UTI (urinary tract infection) Current Visit: Yes Status: Acute Comment: f/u UCx 1+ LE, 1+ wbc, 1+ bacteria empiric ceftriaxone nothing on bladderscan (3) Afib Current Visit: Yes Status: Acute Code(s): I48.91 - UNSPECIFIED ATRIAL FIBRILLATION SNOMED Code(s): 30571062 Comment: metoprolol tartrate 25mg po BID not on a/c likely fall risk (4) LBBB (left bundle branch block) Current Visit: Yes Status: Acute Code(s): I44.7 - LEFT BUNDLE-BRANCH BLOCK, UNSPECIFIED SNOMED Code(s): 48677466 (5) Right leg paresthesias Current Visit: Yes Status: Acute Code(s): R20.2 - PARESTHESIA OF SKIN SNOMED Code(s): 099970248 Comment: Physical therapy likely 2/2 sciaticia, plan as above (6) Psoriasis Current Visit: Yes Status: Acute Code(s): L40.9 - PSORIASIS, UNSPECIFIED SNOMED Code(s): 3450033 (7) Hypertension Current Visit: Yes Status: Acute Code(s): I10 - ESSENTIAL (PRIMARY) HYPERTENSION SNOMED Code(s): 35434672 Comment: amlodipine 5mg metoprolol tartrate 25mg BID Status and Disposition: medicine inpatient. awaiting physical therapy recs. Attending: Ant Ferrell
[2017-05-05] MEDS: Lidocaine Patch REMOVE* 1 NOTE MISC SCH (21:26)
[2017-05-06] MEDS: Heparin VIAL(*) 5000 UNITS/ML VIAL (FIVE THOUSAND) SUBCUT SCH ×2 (05:33→16:05)
[2017-05-06] MEDS: amLODIPine TAB* 5 MG PO SCH (08:13)
[2017-05-06] MEDS: Gabapentin CAP(*) 100 MG PO SCH (08:13)
[2017-05-06] MEDS: Nystatin TOP POWDER* 15 GM BTL TOPICAL SCH ×2 (08:14→13:50)
[2017-05-06] MEDS: predniSONE TAB* 20 MG PO SCH (08:14)
[2017-05-06] MEDS: Metoprolol Tartrate TAB* 25 MG PO SCH (08:14)
[2017-05-06] MEDS: Lidocaine PATCH 5%* 1 PATCH TRANSDERM SCH (08:15)
[2017-05-06 11:45] VITALS: BP 127/52
--- NOTE | 2017-05-06 16:28 | DS ---
DATE OF ADMISSION: 05/04/2017. DATE OF DISCHARGE: 05/06/2017. PRIMARY CARE PROVIDER: Dr. Gallardo. ADMITTING PROVIDER: Kirby Claros NP. ATTENDING PHYSICIAN WHILE IN HOSPITAL: Dr. Ant Ferrell. CHIEF COMPLAINT: Right leg pain interfering with ambulation. Primary Diagnoses: Sciatica exacerbation & UTI SECONDARY DIAGNOSES: Atrial fibrillation, left bundle branch block, psoriasis. HISTORY OF PRESENT ILLNESS AND HOSPITAL COURSE: Ms. Javier is an 87-year-old female with a past medical history of atrial fibrillation, left bundle branch block, psoriasis, and sciatica-like pain that has been worsening over the last few days. Please see history and physical of May 04 for further details. The patient is a very poor historian, but per history and physical she has been having more problems walking, stepping into the shower and sitting due to acute on chronic sciatica-like pain that shoots down from her right hip to her right leg. These are not new complaints and she was seen for observation within recent weeks. She had repeat CT imaging of her lumbar spine. This revealed multilevel degenerative spondylosis and facet joint osteoarthritis with associated acquired spinal stenosis without significant interval change compared to CT scan of 07/14/2015. 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 The patient was started on Prednisone 40 mg daily and Lidoderm patch, in addition to prn Oxycodone. She was continued on home Gabapentin 200 mg p.o. b.i.d. She was noted to have problems with urinary retention and urinalysis performed was suspicious for a urinary tract infection. UA 1+ positive leukocyte esterase and 1+ bacteria with 6 to 10 WBC's per high powered field. Urine Culture is pending. She was started empirically on Ceftriaxone while in the hospital and will be discharged for further treatment with Ceftin 250 mg p.o. b.i.d. for three additional days. She will be discharged on a Prednisone taper with 40 mg daily for three more days and then 20 mg daily for five days. The patient was considered stable for discharge to [facility] where she will continue to work with Physical Therapy. DISPOSITION: [facility]. DIET: Regular, unchanged. DISCHARGE MEDICATIONS: 1. Gabapentin 200 mg p.o. b.i.d. 2. Lidoderm patch 5% daily. 3. Metoprolol 25 mg p.o. b.i.d. 4. Nystatin powder topical application prn. 5. Amlodipine 5 mg p.o. daily. 6. Prednisone tab with taper, 40 mg p.o. daily times 3 days followed by 20 mg tab p.o. daily times 5 days, then stop. 7. Tramadol 25 mg p.o. q.4 hours prn. [id number]/[facility] #: [id number] [facility]
--- NOTE | 2017-05-09 12:00 | ED ---
Martin Cole Alfonso, scribed for Tyler Greco MD on 05/04/17 at 1304 . Lower Extremity - HPI Summary HPI Summary: LEVEL 5 CAVEAT DUE TO NON VERBAL STATUS. This patient is an 87 year old F [facility] accompanied by daughter with a chief complaint of RLE pain since a few weeks ago. The patient rates the pain 5/10 in severity. Symptoms aggravated by ambulation. Symptoms alleviated by nothing. Daughter denies fever, chills, diaphoresis, loss of appetite, CP, SOB, urinary symptoms, and bed sores. Daughter states she is in bed often. Daughter denies any falls. She was admitted to [facility] 04/17/17 to 04/18/17 with a principal diagnosis of right lower extremity pain likely due to lumbosacral radiculopathy. PMHx includes CAD, HLD, and HTN. - History of Current Complaint Chief Complaint: EDGeneral Stated Complaint: UNABLE TO AMBULATE Time Seen by Provider: 05/04/17 13:01 Hx Obtained From: Patient Onset of Pain: Prior to Arrival Onset/Duration: Weeks Severity Initially: Moderate Severity Currently: Moderate Pain Intensity: 5 Pain Scale Used: 0-10 Numeric Timing: Constant Location: Is Discrete @ - RLE Associated Signs And Symptoms: Positive: Other - Daughter denies fever, chills, diaphoresis, loss of appetite, CP, SOB, urinary symptoms, and bed sores. Daughter states she is in bed often. Aggravating Factor(s): Ambulation Alleviating Factor(s): Nothing - Allergies/Home Medications Allergies/Adverse Reactions: Allergies Allergy/AdvReac Type Severity Reaction Status Date / Time No Known Drug Allergy Allergy See Comment Verified 05/04/17 13:01 PACEMAKER-NO MRIs Allergy PACEMAKER-NO Uncoded 05/04/17 13:01 MRIs PMH/Surg Hx/FS Hx/Imm Hx Endocrine/Hematology History: Denies: Hx Diabetes Cardiovascular History: Reports: Hx Coronary Artery Disease, Hx Hypercholesterolemia, Hx Hypertension, Hx Pacemaker/ICD - [facility] FOLLOWS - NO MRIs, Other Cardiovascular Problems/Disorders - LBBB GI History: Reports: Hx Gall Bladder Disease History: Reports: Hx Kidney Stones Sensory History: Reports: Hx Cataracts, Hx Contacts or Glasses - GLASSES, Hx Deafness, Hx Hearing Aid, Hx Hearing Problem - pt is [place] Opth[facility] History: Reports: Hx Cataracts, Hx Contacts or Glasses - GLASSES - Surgical History Surgery Procedure, Year, and Place: [id number]. APPENDECTOMY. [facility]OL[facility] 1977,. BLADDER SUSPENSION 1987. 2014-STENT PLACEMENT- [facility] Hx Anesthesia Reactions: No - Immunization History Date of Tetanus Vaccine: unknown Date of Influenza Vaccine: 2-3 years ago Infectious Disease History: Denies: Traveled Outside the [place] in Last 30 Days - Family History Known Family History: Positive: Cardiac Disease, Other - Brain CA, CVA - Social History Alcohol Use: None Substance Use Type: Reports: None Smoking Status (MU): Former Smoker Type: Cigarettes Amount Used/How Often: 1 PPD OR LESS X 20 YEARS Have You Smoked in the Last Year: No Review of Systems - ROS Summary Review of Systems Summary: LEVEL 5 CAVEAT DUE TO NON VERBAL STATUS. Negative: Fever, Chills, Skin Diaphoresis Negative: Chest Pain Negative: Shortness Of Breath Positive: Other - Negative loss of appetite. Positive: no symptoms reported Positive: Other - RLE pain Positive: Other - Negative bed sores. All Other Systems Reviewed And Are Negative: No Physical Exam Triage Information Reviewed: Yes Vital Signs On Initial Exam: Initial Vitals Temp Pulse Resp BP Pulse Ox 97.1 F 56 20 142/55 99 05/04/17 11:59 05/04/17 11:59 05/04/17 11:59 05/04/17 11:59 05/04/17 11:59 Vital Signs Reviewed: Yes Completion Of Physical Exam Limited Due To: Level 5 Appearance: Positive: Well-Appearing, No Pain Distress, Well-Nourished Skin: Positive: Other - psoriatic sore bilateral shins with no erythema. Feet are dirty with significantly overgrown toenails. No signs of toe necrosis. Head/Face: Positive: Normal Head/Face Inspection Eyes: Positive: Conjunctiva Clear ENT: Positive: Normal ENT inspection Neck: Positive: Other: - Musculoskeletal ROM normal neck. (-) JVD, (-) Stridor, (-) Tracheal deviation Lymph: (-) Cervical adenopathy Respiratory/Lung Sounds: Positive: Other - Effort normal. (-) Respiratory distress, (-) Wheezes, (-) Rales Cardiovascular: Positive: Other - Rhythm regular, rate normal, Heart sounds normal; Intact distal pulses; The pedal pulses are 2+ and symmetric. Radial pulses are 2+ and symmetric. (-) Murmur Abdomen Description: Positive: Other: - Soft, (-) Tenderness, (-) Distension, (- ) Guarding, (-) Rebound Musculoskeletal: Positive: Other - Strength is intact in bilateral LE. Neurological: Positive: Other - Fatigue. Psychiatric: Positive: Other - She does not directly answer any questions on history. Diagnostics - Vital Signs Vital Signs Temp Pulse Resp BP Pulse Ox 05/04/17 13:00 58 95 05/04/17 12:59 57 94 05/04/17 11:59 97.1 F 56 20 142/55 99 - Laboratory Result Diagrams: 05/04/17 13:25 05/04/17 13:25 Lab Statement: Any lab studies that have been ordered have been reviewed, and results considered in the medical decision making process. - Radiology CXR Radiology Interpretation Completed By: Radiologist - NO ACTIVE CARDIOPULMONARY DISEASE IS NOTED. ED physician has reviewed this radiology report and agrees. Knee X-ray Radiology Interpretation Completed By: Radiologist - MILD DEGENERATIVE CHANGE ABOUT THE KNEE WITH CHONDROCALCINOSIS. ED physician has reviewed this radiology report and agrees. - EKG 1332 Cardiac Rate: NL - BPM 57 EKG Interpretation: Paced rhythm. Lower Extremity Course/Dx - Course Assessment/Plan: LEVEL 5 CAVEAT DUE TO NON VERBAL STATUS. This patient is an 87 year old F presenting to [facility] accompanied by daughter with a chief complaint of RLE pain since a few weeks ago. The patient rates the pain 5/10 in severity. Symptoms aggravated by ambulation. Symptoms alleviated by nothing. Daughter denies fever, chills, diaphoresis, loss of appetite, CP, SOB, urinary symptoms, and bed sores. Daughter states she is in bed often. Daughter denies any falls. She was admitted to [facility] 04/17/17 to 04/18/17 with a principal diagnosis of right lower extremity pain likely due to lumbosacral radiculopathy. PMHx includes CAD, HLD, and HTN. An EKG reveals paced rhythm. CXR reveals NO ACTIVE CARDIOPULMONARY DISEASE IS NOTED. ED physician has reviewed this radiology report and agrees. Knee X-Ray reveals MILD DEGENERATIVE CHANGE ABOUT THE KNEE WITH CHONDROCALCINOSIS. ED physician has reviewed this radiology report and agrees. We discussed patient care with Dr. Babin ( hospitalist) and they recommended admission. Patient will be admitted to [facility] with follow up from Dr. Babin. - Diagnoses Provider Diagnoses: Failure to thrive, Weakness - Physician Notifications Discussed Care Of Patient With: Lenore Babin Time Discussed With Above Provider: 14:50 Instructed by Provider To: Other - Consulted Dr. Babin (hospitalist) who agrees to admit. Discharge - Discharge Plan Condition: Stable Disposition: ADMITTED TO [facility] documentation as recorded by the Martin triana Alfonso accurately reflects the service I personally performed and the decisions made by , Tyler Greco MD.
== END 2017-05-06 16:05 | DRG 552 ==
LOC: ED 11:53 → MED 15:30
PROVIDERS: ADMIT Hospitalist; ATTEND Internal Medicine
DX: M54.31 Sciatica, right side (principal); I48.91 Unspecified atrial fibrillation; N39.0 Urinary tract infection, site not specified; I44.7 Left bundle-branch block, unspecified; L40.9 Psoriasis, unspecified; M47.9 Spondylosis, unspecified; M43.26 Fusion of spine, lumbar region; M48.07 Spinal stenosis, lumbosacral region; M48.06 Spinal stenosis, lumbar region; R33.9 Retention of urine, unspecified; Z97.4 Presence of external hearing-aid; Z87.442 Personal history of urinary calculi; I10 Essential (primary) hypertension; Z87.891 Personal history of nicotine dependence; Z90.49 Acquired absence of other specified parts of digestive tract; Z98.49 Cataract extraction status, unspecified eye; Z95.0 Presence of cardiac pacemaker; R20.2 Paresthesia of skin; I25.10 Atherosclerotic heart disease of native coronary artery without angina pectoris; E78.5 Hyperlipidemia, unspecified; H91.90 Unspecified hearing loss, unspecified ear; Z95.5 Presence of coronary angioplasty implant and graft; Z82.49 Family history of ischemic heart disease and other diseases of the circulatory system; Z80.8 Family history of malignant neoplasm of other organs or systems; Z82.3 Family history of stroke
CPT/HCPCS: 36415; 71010; 72131; 80048; 80053; 81003; 81015; 82140; 82607; 83605; 84484; 85025; 85610; 85730; 87040; 87086; 93005; A9270-GY; J0696; J1644; J7512

== ENCOUNTER 2017-05-25 02:27 | Inpatient (IN) | payer MEDICARE ==
[2017-05-25] MEDS ORDERED: NS 0.9% 1000 ML* 1,000 ML IV ONE (03:27)
[2017-05-25 03:55] LABS: Hematocrit 43 % (35-47); Hemoglobin 14.4 g/dl (12.0-16.0); Mean Corpuscular HGB Conc 34 g/dl (31-36); Mean Corpuscular Hemoglobin 35 pg (27-31); Mean Corpuscular Volume 104 fL (80-97); Mean Platelet Volume 9 um3 (7.4-10.4); Red Cell Distribution Width 16 % (10.5-15); White Blood Count 15.7 10^3/ul (3.5-10.8)
[2017-05-25 03:57] LABS: Add Diff/Slide Review? Slide Review Added; Comments Flag Yes
[2017-05-25 04:08] LABS: ALT 45 U/L (7-52); AST 34 U/L (13-39); Albumin 2.8 g/dL (3.2-5.2); Alkaline Phosphatase 120 U/L (34-104); Ammonia 202 mol/L (16-53); C Reactive Protein 108.25 mg/L (< 5.00); CO2 Carbon Dioxide 20 mmol/L (22-32); Calcium 10.1 mg/dL (8.6-10.3); Chloride 97 mmol/L (101-111); Creatine Kinase 28 U/L (10-223); EGFR African American 9.4 (>60); EGFR Non-African American 7.3 (>60); Globulin 3.3 g/dL (2-4); Glucose 116 mg/dL (70-100); Lipase 65 U/L (11.0-82.0); Magnesium 3.2 mg/dL (1.9-2.7); Sodium 131 mmol/L (133-145); Total Protein 6.1 g/dL (6.4-8.9)
[2017-05-25 04:12] LABS: Troponin I 0.06 ng/mL (<0.04)
[2017-05-25 04:13] LABS: B Type Natriuretic Peptide 184 pg/mL
[2017-05-25 04:20] LABS: Anion Gap 14 mmol/L (2-11); Potassium 6.1 mmol/L (3.5-5.0)
[2017-05-25 04:24] LABS: BUN/Creatinine Ratio 24.5 (8-20); Blood Urea Nitrogen 135 mg/dL (6-24)
[2017-05-25 04:38] LABS: Acetaminophen < 15 mcg/mL; Alcohol < 10 mg/dL (<10)
[2017-05-25 04:48] LABS: TSH (Thyroid Stimulating Horm) 2.06 mcIU/mL (0.34-5.60)
[2017-05-25] MEDS ORDERED: Insulin REGULAR(*) 1 UNITS UNIT IV PUSH ONE (05:05)
[2017-05-25] MEDS ORDERED: Dextrose 50% Syringe 50 ML* 25 GM/50 ML SYRINGE IV PUSH ONE (05:05)
[2017-05-25 05:24] LABS: Urine Bacteria Absent (Absent); Urine Bilirubin Negative (Negative); Urine Glucose 1+(50 mg/dL) (Negative); Urine Nitrite Negative (Negative)
--- NOTE | 2017-05-25 05:43 | HP ---
H&P (Free Text) History and Physical: PCP: Brendon Date/Time: 05/25/2017 0515 CC: lethargy HPI: Mrs Javier is an 87YO female admitted 04/17-04/18/2017 and again 05/04-02/2017 for uncontrolled sciatica. Tonight she was sent via EMS to [facility] for lethargy. Mrs Javier is quite obtunded and unable to give any history or current status information. Per EMS report [facility] nursing reported her to have been declining for the past 2 days. They also reported gin blood per rectum, but were unable to answer EMS questions regarding quantity or duration. Her baseline is reported as "able to speak well and ambulate around". Per her MOLST she is a DNR/I, comfort-only with trial of ABX and IVFs. PMedHx AFIB LBBB psoriasis lumbar radiculopathy with sciatica Ambulatory Orders Metoprolol Tartrate TAB* [Lopressor TAB*] 25 mg PO BID 07/04/15 Gabapentin CAP(*) [Neurontin 100 mg CAP(*)] 200 mg PO BID #120 cap 04/18/17 traMADol TAB* [Ultram*] 25 mg PO Q4H PRN #30 tab MDD 6 tabs 04/18/17 Acetaminophen TAB* [Tylenol TAB*] 650 mg PO Q4H PRN #0 tab 05/06/17 Lidocaine PATCH 5%* [Lidoderm 5% Patch*] 1 patch TRANSDERM DAILY #10 patch 05/06 Nystatin TOP POWDER* 1 applic TOPICAL TID #1 btl 05/06/17 amLODIPine TAB* [Norvasc 5 mg TAB*] 5 mg PO DAILY tab 05/06/17 ceFUROXime TAB(*) [Ceftin TAB 250 MG(*)] 250 mg PO BID #6 tab 05/06/17 predniSONE TAB* [Deltasone TAB*] 20 mg PO SEE INSTRUCTIONS #11 tab 05/06/17 Allergies No Known Drug Allergy Allergy (Verified 05/04/17 13:01) See Comment PACEMAKER-NO MRIs Allergy (Uncoded 05/04/17 13:01) PACEMAKER-NO MRIs PSurgHx cataract extraction pacer placement cholecystectomy bladder suspension ovarian tumor excision SocHx: former smoker, no alcohol; currently at [facility]; DNR/I, comfort-only, trial of ABX & IVFs FamHx: unobtainable ROS: as above, otherwise reviewed and all were negative vitals: Vital Signs Temp 36.8 C 05/25/17 02:28 Pulse 72 05/25/17 04:57 Resp 20 05/25/17 02:28 BP 119/50 05/25/17 05:00 Pulse Ox 93 05/25/17 04:57 Intake & Output 05/24/17 05/24/17 05/25/17 11:59 23:59 11:59 Weight 68.039 kg Constitutional: NAD, normally developed, obese elderly white female HEENM: atraumatic; hearing: unable to assess; oropharynx: clear, mucosa tacky Neck: soft tissue: no nuchal rigidity; thyroid: normal Pulmonary: diminished B with scant scattered crackles, unable to comply with deep inspiration request, fair aeration, no accessory muscle use CV: RR/RR, normal S1S2, no carotid bruit, no jugular venous distention, 2+ B DP/ PT, 2+ RLE/1+LLE edema Abdominal: soft, non-distended, tender hypogastrum, no rebound/guarding/rigidity , normoactive bowel sounds, no hepatosplenomegaly or masses, no costovertebral angle tenderness Musculoskeletal: general: grossly intact; gait: unable to ambulate currently Integumental: silvery thick scale BLE Psychiatric orientation: GCS 6 affect: obtunded mood: acquiescent eye contact: absent content: only word spoken during H&P was a soft "ow" while palpating hypogastrum memory: unable to assess responses: withdraws to pain, nearly non-verbal insight: poor to absent Testing: Lab Results 05/25/17 05/25/17 05/25/17 Range/Units 03:40 03:40 03:40 WBC (3.5-10.8) 10^3/ul RBC (4.0-5.4) 10^6/ul Hgb (12.0-16.0) g/dl Hct (35-47) % MCV (80-97) fL MCH (27-31) pg MCHC (31-36) g/dl RDW (10.5-15) % Plt Count (150-450) 10^3/ul MPV (7.4-10.4) um3 Neut % (Auto) (38-83) % Lymph % (Auto) (25-47) % [place] % (Auto) (1-9) % Eos % (Auto) (0-6) % Baso % (Auto) (0-2) % Absolute Neuts (auto) (1.5-7.7) 10^3/ul Absolute Lymphs (auto) (1.0-4.8) 10^3/ul Absolute Monos (auto) (0-0.8) 10^3/ul Absolute Eos (auto) (0-0.6) 10^3/ul Absolute Basos (auto) (0-0.2) 10^3/ul Absolute Nucleated RBC 10^3/ul Nucleated RBC % INR (Anticoag Therapy) 1.78 H (0.89-1.11) APTT 39.0 H (26.0-36.3) seconds D-Dimer, Quantitative > 1050 H (Less Than 230) ng/mL Sodium 131 L (133-145) mmol/L Potassium 6.1 H* (3.5-5.0) mmol/L Chloride 97 L (101-111) mmol/L Carbon Dioxide 20 L (22-32) mmol/L Anion Gap 14 H (2-11) mmol/L BUN 135 H (6-24) mg/dL Creatinine 5.51 H (0.51-0.95) mg/dL Est GFR ( Amer) 9.4 (>60) Est GFR (Non-Af Amer) 7.3 (>60) BUN/Creatinine Ratio 24.5 H (8-20) Glucose 116 H (70-100) mg/dL Lactic Acid (0.5-2.0) mmol/L Calcium 10.1 (8.6-10.3) mg/dL Magnesium 3.2 H (1.9-2.7) mg/dL Total Bilirubin 2.80 H (0.2-1.0) mg/dL AST 34 (13-39) U/L ALT 45 (7-52) U/L Alkaline Phosphatase 120 H (34-104) U/L Ammonia 202 H (16-53) mol/L Total Creatine Kinase 28 (10-223) U/L CK-MB (CK-2) 2.5 (0.6-6.3) ng/mL Troponin I 0.06 H* (<0.04) ng/mL C-Reactive Protein 108.25 H (< 5.00) mg/L B-Natriuretic Peptide 184 H ( - 100) pg/mL Total Protein 6.1 L (6.4-8.9) g/dL Albumin 2.8 L (3.2-5.2) g/dL Globulin 3.3 (2-4) g/dL Albumin/Globulin Ratio 0.8 L (1-3) Lipase 65 (11.0-82.0) U/L TSH 2.06 (0.34-5.60) mcIU/mL Urine Color Urine Appearance Urine pH (5-9) Ur Specific [place] (1.010-1.030) Urine Protein (Negative) Urine Ketones (Negative) Urine Blood (Negative) Urine Nitrate (Negative) Urine Bilirubin (Negative) Urine Urobilinogen (Negative) Ur Leukocyte Esterase (Negative) Urine WBC (Auto) (Absent) Urine RBC (Auto) (Absent) Urine Bacteria (Absent) Urine Glucose (Negative) Acetaminophen < 15 mcg/mL Serum Alcohol < 10 (<10) mg/dL 05/25/17 05/25/17 05/25/17 Range/Units 03:40 03:40 04:53 WBC 15.7 H (3.5-10.8) 10^3/ul RBC 4.10 (4.0-5.4) 10^6/ul Hgb 14.4 (12.0-16.0) g/dl Hct 43 (35-47) % MCV 104 H (80-97) fL MCH 35 H (27-31) pg MCHC 34 (31-36) g/dl RDW 16 H (10.5-15) % Plt Count 72 L (150-450) 10^3/ul MPV 9 (7.4-10.4) um3 Neut % (Auto) 80.5 (38-83) % Lymph % (Auto) 7.2 L (25-47) % [place] % (Auto) 11.1 H (1-9) % Eos % (Auto) 0.6 (0-6) % Baso % (Auto) 0.6 (0-2) % Absolute Neuts (auto) 12.6 H (1.5-7.7) 10^3/ul Absolute Lymphs (auto) 1.1 (1.0-4.8) 10^3/ul Absolute Monos (auto) 1.8 H (0-0.8) 10^3/ul Absolute Eos (auto) 0.1 (0-0.6) 10^3/ul Absolute Basos (auto) 0.1 (0-0.2) 10^3/ul Absolute Nucleated RBC 0 10^3/ul Nucleated RBC % 0 INR (Anticoag Therapy) (0.89-1.11) APTT (26.0-36.3) seconds D-Dimer, Quantitative (Less Than 230) ng/mL Sodium (133-145) mmol/L Potassium (3.5-5.0) mmol/L Chloride (101-111) mmol/L Carbon Dioxide (22-32) mmol/L Anion Gap (2-11) mmol/L BUN (6-24) mg/dL Creatinine (0.51-0.95) mg/dL Est GFR ( Amer) (>60) Est GFR (Non-Af Amer) (>60) BUN/Creatinine Ratio (8-20) Glucose (70-100) mg/dL Lactic Acid 2.8 H* (0.5-2.0) mmol/L Calcium (8.6-10.3) mg/dL Magnesium (1.9-2.7) mg/dL Total Bilirubin (0.2-1.0) mg/dL AST (13-39) U/L ALT (7-52) U/L Alkaline Phosphatase (34-104) U/L Ammonia (16-53) mol/L Total Creatine Kinase (10-223) U/L CK-MB (CK-2) (0.6-6.3) ng/mL Troponin I (<0.04) ng/mL C-Reactive Protein (< 5.00) mg/L B-Natriuretic Peptide ( - 100) pg/mL Total Protein (6.4-8.9) g/dL Albumin (3.2-5.2) g/dL Globulin (2-4) g/dL Albumin/Globulin Ratio (1-3) Lipase (11.0-82.0) U/L TSH (0.34-5.60) mcIU/mL Urine Color Becca Urine Appearance Clear Urine pH 5.0 (5-9) Ur Specific [place] 1.016 (1.010-1.030) Urine Protein Negative (Negative) Urine Ketones Negative (Negative) Urine Blood 2+ H (Negative) Urine Nitrate Negative (Negative) Urine Bilirubin Negative (Negative) Urine Urobilinogen Negative (Negative) Ur Leukocyte Esterase Negative (Negative) Urine WBC (Auto) Absent (Absent) Urine RBC (Auto) 3+(>10/hpf) H (Absent) Urine Bacteria Absent (Absent) Urine Glucose 1+(50 mg/dl) H (Negative) Acetaminophen mcg/mL Serum Alcohol (<10) mg/dL ECG, personally reviewed: atrially sensed ventricularly paced rhythm rate 71, diffusely increased peaking of T-waves compared to prior CXR, personally reviewed: no acute process, pacer L chest CT brain WO, personally reviewed: CT abd/pel WO, personally reviewed: Marked bladder dilatation appearing since . Minimal to moderate hydronephrosis is now bilateral, probably secondary to dilated bladder. Left ureteral stone no longer seen. Small stone left kidney. Cirrhotic liver. Unremarkable pancreas and gallbladder. No bowel obstruction, colitis, free fluid or free air. Appendix not seen. Hysterectomy. Small hiatal hernia. Hemivertebra L4 and associated levoscoliosis. Chronic compression fracture T12. Impression: 87F presenting with severe sepsis suspected to be of urinary source in the setting of massively distended bladder 2nd acute urinary retention ? 2nd narcotics DIAGNOSIS & PLAN Primary septic shock (lethargy, leukocytosis, systolic <100, lactic acidosis) with multi -system organ failure 2nd urinary source 2nd acute urinary obstruction vs retention : ICU monitoring : IV ceftriaxone : IVFs : blood & urine CXs : supportive care toxic/metabolic encephalopathy : treat suspected infectious burden : lactulose for hyper-ammonemia : trend lactic acidosis : IVFs acute renal failure 2nd suspect acute urinary retention vs less likely mechanical obstruction : jones to gravity : Q4H urinary tally divided by 4 equals new Q4H IVF rate for anticipated post- obstructive diuresis : consider nephrology consult pending response to retention relief & BUN/cre/K+ curve elevated d-dimer & RLE swelling : venous US RLE : maintaining saO2 on RA, no tachypnea, no labored breathing; clinically low suspicion for PE : cannot anticoagulate 2nd gin rectal blood reported by [facility] nursing to EMS hyperKalemia 2nd acute renal failure : 1g calcium gluconate, 25g dextrose & 10units regular insulin given in ED : expect improvement w/ improved renal FX w/ relief of urinary retention : trend acute hepatic failure (elevated INR & ammonia) : 30cc lactulose via NG QID : trend elevated troponin : suspect demand ischemia : telemetry : trend : no aspirin 2nd gin rectal blood reported by [facility] nursing to EMS : no beta toy in setting of septic shock : supplemental oxygen suspect protein-calorie malnutrition : check pre-albumin ? gin bright red blood per rectum : stool for occult blood : trend H&H Secondary AFIB : hold metoprolol in setting of septic shock : rate control PRN psoriasis : no acute issues lumbar radiculopathy with sciatica : no acute issues Admission Rational: inpatient for septic shock of uncertain etiology, suspect urinary; patient at very high mortality in the inpatient setting; inappropriate for outpatient management DVTp: SCDs (after RLE US resulted and negative) Code Status: DNR/I, comfort-only, trial of ABX/IVFs HCP: daughter, Kaitlyn Dickerson [phone]
[2017-05-25] MEDS ORDERED: NS 0.9% 1000 ML* 1,000 ML IV SCH ×2 (06:30)
[2017-05-25 06:34] LABS: Prealbumin 7 mg/dL (18-38)
[2017-05-25] MEDS ORDERED: cefTRIAXone VIAL(*) 1,000 MG in NS 0.9% 50 ML* 50 ML IVPB SCH (07:00)
--- NOTE | 2017-05-25 07:16 | RAD ---
INDICATION: Altered mental status COMPARISON: None. TECHNIQUE: Contiguous axial sections of the brain were obtained from the skull base to the vertex without contrast. Evaluation is limited by motion artifact securing evaluation despite multiple acquisitions. FINDINGS: The ventricles, cisterns and sulci exhibit mild and age-appropriate involutional change. There is mild to moderate periventricular and subcortical white matter hypoattenuation most consistent with chronic microvascular disease. The tavarez-white matter differentiation is adequately maintained and there is no sulcal effacement. No significant focal abnormality or mass effect is present. There is no evidence for intracranial hemorrhage. No significant focal osseous abnormality is present. The visualized portion of the paranasal sinuses and mastoid air cells appear clear. IMPRESSION: Limited CT of the brain due to motion artifact does not reveal any definite acute intracranial abnormality.
--- NOTE | 2017-05-25 07:19 | RAD ---
INDICATION: Altered mental status COMPARISON: Most recent comparison chest x-ray May 04, 2017 TECHNIQUE: Single AP portable view of the chest was obtained. FINDINGS: Image quality is compromised due to the relative inferiority of a portable chest x-ray. Again seen is a left upper chest cardiac pacemaker with 2 leads overlying the heart. The heart and mediastinum exhibit normal size and contour. The lungs are grossly clear. There is no evidence of a large pleural effusion. Visualized bones are normal for the patient's age. IMPRESSION: No radiographic evidence for acute cardiopulmonary abnormality on this portable chest x-ray.
--- NOTE | 2017-05-25 07:35 | ED ---
Valeria Cole Nilda, scribed for Jakob Pérez MD on 05/25/17 at 0703 . Altered Mental Status - HPI Summary HPI Summary: Level 5 Caveat due to unresponsiveness and non-verbal status. Patient is 87 y.o F SU[facility] from [facility] presenting to [facility] for AMS characterized as unresponsiveness that began 0200 today. Symptoms are aggravated by unknown cause and is alleviated by nothing. - History Of Current Complaint Chief Complaint: EDAltMentalStatus Stated Complaint: AMS Time Seen by Provider: 05/25/17 03:06 Hx Obtained From: EMS Hx From Patient Unobtainable Due To: Altered Mental Status Onset/Duration: Still Present Timing: Lasting Hours - began 1.5 hours ago Severity Initially: Severe Severity Currently: Severe Character: Responsiveness - Patient is unresponsive and non verbal Aggravating Factor(s): Unknown Alleviating Factor(s): Nothing - Allergies/Home Medications Allergies/Adverse Reactions: Allergies Allergy/AdvReac Type Severity Reaction Status Date / Time No Known Drug Allergy Allergy See Comment Verified 05/04/17 13:01 PACEMAKER-NO MRIs Allergy PACEMAKER-NO Uncoded 05/04/17 13:01 MRIs Home Medications: Home Medications Sennosides-Docusate Sodium [Senna-S 8.6-50 mg] 1 tab PO DAILY 05/25/17 [History Confirmed 05/25/17] PMH/Surg Hx/FS Hx/Imm Hx Endocrine/Hematology History: Denies: Hx Diabetes Cardiovascular History: Reports: Hx Coronary Artery Disease, Hx Hypercholesterolemia, Hx Hypertension, Hx Pacemaker/ICD - [facility] FOLLOWS - NO MRIs, Other Cardiovascular Problems/Disorders - LBBB GI History: Reports: Hx Gall Bladder Disease, Hx Gastroesophageal Reflux Disease History: Reports: Hx Kidney Stones Sensory History: Reports: Hx Cataracts, Hx Contacts or Glasses - GLASSES, Hx Deafness, Hx Hearing Aid, Hx Hearing Problem - pt is [facility] Opthamlomology History: Reports: Hx Cataracts, Hx Contacts or Glasses - GLASSES - Surgical History Surgery Procedure, Year, and Place: [id number]. APPENDECTOMY. [facility] 1977,. BLADDER SUSPENSION 1987. [place] [facility] [place]esthesia Reactions: No - Immunization History Date of Tetanus Vaccine: unknown Date of Influenza Vaccine: 2-3 years ago Infectious Disease History: No Infectious Disease History: Denies: Traveled Outside the [place] in Last 30 Days - Family History Known Family History: Positive: Cardiac Disease, Other - Brain CA, CVA - Social History Alcohol Use: None Substance Use Type: Reports: None Smoking Status (MU): Former Smoker Type: Cigarettes Amount Used/How Often: 1 PPD OR LESS X 20 YEARS Have You Smoked in the Last Year: No Review of Systems - ROS Summary Review of Systems Summary: Level 5 Caveat due to unresponsiveness and non-verbal status. Neurological: Other - AMS: unsresponsive All Other Systems Reviewed And Are Negative: No Physical Exam - Summary Physical Exam Summary: General: opens eyes to pain, no verbal response, withdraws from pain Skin: warm, dry, rashes on both LE Head: normal Eyes: 4 mm pupils, non-reactive to light ENT: normal Neck: supple, nontender Respiratory: CTA, breath sounds present Cardiovascular: RRR, murmur (+) Abdomen: nontender, firm abdomen Bowel: hypoactive bowel sounds Musculoskeletal: strength/ROM intact, patient moves all extremities in a grossly normal fashion, bilateral edema Neurological: normal, sensory/motor intact, A&O x3 GCS=7 LEVEL 5 CAVEAT DUE TO UNRESPONSIVENESS AND NONVERBAL STATUS Triage Information Reviewed: Yes Vital Signs On Initial Exam: Initial Vitals Temp Pulse Resp BP Pulse Ox 98.2 F 67 20 108/53 94 05/25/17 02:28 05/25/17 02:28 05/25/17 02:28 05/25/17 02:28 05/25/17 02:28 Vital Signs Reviewed: Yes Diagnostics - Vital Signs Vital Signs Temp Pulse Resp BP Pulse Ox 05/25/17 02:28 98.2 F 67 20 108/53 94 - Laboratory Lab Results: Lab Results 05/25/17 05/25/17 05/25/17 Range/Units 03:40 03:40 03:40 WBC (3.5-10.8) 10^3/ul RBC (4.0-5.4) 10^6/ul Hgb (12.0-16.0) g/dl Hct (35-47) % MCV (80-97) fL MCH (27-31) pg MCHC (31-36) g/dl RDW (10.5-15) % Plt Count (150-450) 10^3/ul MPV (7.4-10.4) um3 Neut % (Auto) (38-83) % Lymph % (Auto) (25-47) % [place] % (Auto) (1-9) % Eos % (Auto) (0-6) % Baso % (Auto) (0-2) % Absolute Neuts (auto) (1.5-7.7) 10^3/ul Absolute Lymphs (auto) (1.0-4.8) 10^3/ul Absolute Monos (auto) (0-0.8) 10^3/ul Absolute Eos (auto) (0-0.6) 10^3/ul Absolute Basos (auto) (0-0.2) 10^3/ul Absolute Nucleated RBC 10^3/ul Nucleated RBC % INR (Anticoag Therapy) 1.78 H (0.89-1.11) APTT 39.0 H (26.0-36.3) seconds D-Dimer, Quantitative > 1050 H (Less Than 230) ng/mL Sodium 131 L (133-145) mmol/L Potassium 6.1 H* (3.5-5.0) mmol/L Chloride 97 L (101-111) mmol/L Carbon Dioxide 20 L (22-32) mmol/L Anion Gap 14 H (2-11) mmol/L BUN 135 H (6-24) mg/dL Creatinine 5.51 H (0.51-0.95) mg/dL Est GFR ( Amer) 9.4 (>60) Est GFR (Non-Af Amer) 7.3 (>60) BUN/Creatinine Ratio 24.5 H (8-20) Glucose 116 H (70-100) mg/dL Lactic Acid (0.5-2.0) mmol/L Calcium 10.1 (8.6-10.3) mg/dL Magnesium 3.2 H (1.9-2.7) mg/dL Total Bilirubin 2.80 H (0.2-1.0) mg/dL AST 34 (13-39) U/L ALT 45 (7-52) U/L Alkaline Phosphatase 120 H (34-104) U/L Ammonia 202 H (16-53) mol/L Total Creatine Kinase 28 (10-223) U/L CK-MB (CK-2) 2.5 (0.6-6.3) ng/mL Troponin I 0.06 H* (<0.04) ng/mL C-Reactive Protein 108.25 H (< 5.00) mg/L B-Natriuretic Peptide 184 H ( - 100) pg/mL Total Protein 6.1 L (6.4-8.9) g/dL Albumin 2.8 L (3.2-5.2) g/dL Globulin 3.3 (2-4) g/dL Albumin/Globulin Ratio 0.8 L (1-3) Prealbumin 7 L (18-38) mg/dL Lipase 65 (11.0-82.0) U/L TSH 2.06 (0.34-5.60) mcIU/mL Urine Color Urine Appearance Urine pH (5-9) Ur Specific [place] (1.010-1.030) Urine Protein (Negative) Urine Ketones (Negative) Urine Blood (Negative) Urine Nitrate (Negative) Urine Bilirubin (Negative) Urine Urobilinogen (Negative) Ur Leukocyte Esterase (Negative) Urine WBC (Auto) (Absent) Urine RBC (Auto) (Absent) Urine Bacteria (Absent) Urine Glucose (Negative) Acetaminophen < 15 mcg/mL Serum Alcohol < 10 (<10) mg/dL 05/25/17 05/25/17 05/25/17 Range/Units 03:40 03:40 04:53 WBC 15.7 H (3.5-10.8) 10^3/ul RBC 4.10 (4.0-5.4) 10^6/ul Hgb 14.4 (12.0-16.0) g/dl Hct 43 (35-47) % MCV 104 H (80-97) fL MCH 35 H (27-31) pg MCHC 34 (31-36) g/dl RDW 16 H (10.5-15) % Plt Count 72 L (150-450) 10^3/ul MPV 9 (7.4-10.4) um3 Neut % (Auto) 80.5 (38-83) % Lymph % (Auto) 7.2 L (25-47) % [place] % (Auto) 11.1 H (1-9) % Eos % (Auto) 0.6 (0-6) % Baso % (Auto) 0.6 (0-2) % Absolute Neuts (auto) 12.6 H (1.5-7.7) 10^3/ul Absolute Lymphs (auto) 1.1 (1.0-4.8) 10^3/ul Absolute Monos (auto) 1.8 H (0-0.8) 10^3/ul Absolute Eos (auto) 0.1 (0-0.6) 10^3/ul Absolute Basos (auto) 0.1 (0-0.2) 10^3/ul Absolute Nucleated RBC 0 10^3/ul Nucleated RBC % 0 INR (Anticoag Therapy) (0.89-1.11) APTT (26.0-36.3) seconds D-Dimer, Quantitative (Less Than 230) ng/mL Sodium (133-145) mmol/L Potassium (3.5-5.0) mmol/L Chloride (101-111) mmol/L Carbon Dioxide (22-32) mmol/L Anion Gap (2-11) mmol/L BUN (6-24) mg/dL Creatinine (0.51-0.95) mg/dL Est GFR ( Amer) (>60) Est GFR (Non-Af Amer) (>60) BUN/Creatinine Ratio (8-20) Glucose (70-100) mg/dL Lactic Acid 2.8 H* (0.5-2.0) mmol/L Calcium (8.6-10.3) mg/dL Magnesium (1.9-2.7) mg/dL Total Bilirubin (0.2-1.0) mg/dL AST (13-39) U/L ALT (7-52) U/L Alkaline Phosphatase (34-104) U/L Ammonia (16-53) mol/L Total Creatine Kinase (10-223) U/L CK-MB (CK-2) (0.6-6.3) ng/mL Troponin I (<0.04) ng/mL C-Reactive Protein (< 5.00) mg/L B-Natriuretic Peptide ( - 100) pg/mL Total Protein (6.4-8.9) g/dL Albumin (3.2-5.2) g/dL Globulin (2-4) g/dL Albumin/Globulin Ratio (1-3) Prealbumin (18-38) mg/dL Lipase (11.0-82.0) U/L TSH (0.34-5.60) mcIU/mL Urine Color Becca Urine Appearance Clear Urine pH 5.0 (5-9) Ur Specific [place] 1.016 (1.010-1.030) Urine Protein Negative (Negative) Urine Ketones Negative (Negative) Urine Blood 2+ H (Negative) Urine Nitrate Negative (Negative) Urine Bilirubin Negative (Negative) Urine Urobilinogen Negative (Negative) Ur Leukocyte Esterase Negative (Negative) Urine WBC (Auto) Absent (Absent) Urine RBC (Auto) 3+(>10/hpf) H (Absent) Urine Bacteria Absent (Absent) Urine Glucose 1+(50 mg/dl) H (Negative) Acetaminophen mcg/mL Serum Alcohol (<10) mg/dL Result Diagrams: 05/25/17 03:40 05/25/17 03:40 Lab Statement: Any lab studies that have been ordered have been reviewed, and results considered in the medical decision making process. - Radiology CXR Xray Interpretation: No Acute Changes Radiology Interpretation Completed By: ED Physician - CT CT Brain CT Interpretation: No Acute Changes - No definite acute hemorrhae, mass or acute territorial infarct, but exam limited by motion artifact. Age-related involutional changes and chronic small vessel ischemic changes. Clear visualized paranasal sinuses Visualized mastoid air cells. ED physician reviewed radiology report and agrees. CT Interpretation Completed By: Radiologist CT Abd/Pel CT Interpretation Completed By: Radiologist - Pending radiologist interpretation. See [facility]. - EKG 0438 Cardiac Rate: NL ST Segment: Non-Specific - Peaked T waves in comparison to prior EKG EKG Interpretation: Atrial paced rhythm EKG Comparison: Other - Peaked T waves in comparison to prior EKG Altered Mental Statu Course/Dx - Course Course Of Treatment: WHITE HELPED RELIEVE URINARY RETENTION; ABX STARTED. TREATED FOR HYPERKALEMIA. ADMITTED TO ICU BY HOSPITALIST. - Diagnoses Discharge Diagnoses: Renal failure, Hyperkalemia, Urinary retention, Sepsis - Critical Care Time Critical Care Time: 30-74 min Discharge - Discharge Plan Condition: Critical Disposition: ADMITTED TO [facility] The documentation as recorded by the Valeria triana Nilda accurately reflects the service I personally performed and the decisions made by , Jakob Pérez MD.
--- NOTE | 2017-05-25 07:41 | RAD ---
CLINICAL HISTORY: Altered mental status abdomen is firm on physical examination. Relevant surgical history includes appendectomy, cholecystectomy and bladder suspension. COMPARISON: Most recent CT examination is dated July 04, 2015 TECHNIQUE: Noncontrast CT examination of the abdomen and pelvis from the lung bases through the initial tuberosities. FINDINGS: VISUALIZED LUNG BASES: The visualized lung bases are grossly clear. There is a very small right pleural effusion. Cardiac pacemaker wires are seen partially overlying the heart. ABDOMEN AND PELVIS: Evaluation of the solid organs and vasculature is limited without intravenous contrast. The service of the left lobe of the liver exhibits mild nodularity similar appearance to the prior CT examination. The liver is otherwise homogenous in attenuation. The spleen, pancreas and adrenal glands are grossly normal in appearance. The gallbladder is surgically absent. There is mild to moderate right-sided hydronephrosis and to a lesser extent left-sided hydronephrosis. At the low midline abdomen and pelvis there is a fluid density structure measuring 16.2 x 17.7 cm in the axial plane and 21 cm in the cephalocaudal projection most consistent with a dilated urinary bladder. These dimensions yielding an approximate volume of 4.9 L. The small and large bowel are not distended. There is no gross retroperitoneal or mesenteric lymphadenopathy. Neither the uterus or either ovary are discretely visible. There is no free fluid in the pelvis. The partially calcified abdominal aorta does not exhibit pathologic aneurysmal dilatation. Calcified atherosclerosis extends into the bilateral common iliac arteries. Degenerative changes include multilevel loss of intervertebral disc height involving the lower thoracic and lumbar spine.There are no sinister bone lesions. IMPRESSION: 1. CT findings are most consistent with urinary bladder outlet obstruction or neurogenic bladder with secondary mild to moderate hydroureteronephrosis. The approximate volume of what is assumed to be the urinary bladder measures 4.9 L. 2. The uterus and ovaries are not visualized. Please correlate to the patient's surgical history. The fluid density structure in the low abdomen and pelvis is likely the urinary bladder but alternatively could be a large ovarian or other adnexal mass. This should become readily apparent following catheterization. 3. Additional chronic, degenerative and iatrogenic findings described in body the report.
--- NOTE | 2017-05-25 08:47 | RAD ---
HISTORY: Right lower extremity edema with a positive d-dimer TECHNIQUE: Multiple transverse and longitudinal ultrasound images were obtained of the veins of the right lower extremity using grayscale, color Doppler, and spectral Doppler imaging with and without compression and with augmentation. FINDINGS: VEINS: There is partially occlusive thrombus seen in the right common femoral and femoral veins. More distally there is complete thrombotic occlusion of the distal femoral vein extending into the popliteal vein. Flow is identified in the right peroneal and posterior tibial vein, though characterization is incomplete due to overlying edema. SOFT TISSUES: Grossly normal. No large popliteal fossa cyst was identified. IMPRESSION: Partially occlusive DVT in the right common and proximal femoral veins with occlusive DVT more distally in the femoral vein and popliteal vein.
[2017-05-25] MEDS ORDERED: Nystatin TOP POWDER* 15 GM BTL TOPICAL SCH (09:00)
[2017-05-25 09:02] LABS: BUN/Creatinine Ratio 27.5 (8-20); Calcium 9.2 mg/dL (8.6-10.3); EGFR African American 12.2 (>60); EGFR Non-African American 9.5 (>60); Potassium 4.8 mmol/L (3.5-5.0)
[2017-05-25 09:08] LABS: Troponin I 0.04 ng/mL (<0.04)
[2017-05-25] MEDS ORDERED: Morphine INJ* 10 MG/ML 1 ML CARPUJECT IV ONE (12:00)
[2017-05-25] MEDS ORDERED: LORazepam INJ* 2 MG/ML 1 ML VIAL IV PUSH ONE (12:00)
[2017-05-25] MEDS ORDERED: LORazepam VIAL (for drip)* 200 MG in D5W 100 ML BAG* 100 ML IVPB SCH (12:30)
[2017-05-25] MEDS: Morphine PCA 5 MG/ML * Titrate per Protocol PCA SCH (13:50)
--- NOTE | 2017-05-25 15:32 | PN ---
Progress Note - Progress Note Date of Service: 05/25/17 Note: Elderly female admitted from [facility] with multiorgan failure (renal. hepatic, neurologic, hematologic). The patient's daughter (the healthcare proxy ) came in and requested "comfort measures" only, which, she said, was the stated wishes of the patient. Therefore, we have withdrawn all care except for opiates and benzodiazepines to promote comfort. Patient currently appears comfortable.
[2017-05-25] MEDS: Atropine 1% (ORAL/SL)* 15 ML BTL PO PRN ×3 (20:13→22:51)
[2017-05-25 21:24] VITALS: BP 97/48
[2017-05-26] MEDS: Atropine 1% (ORAL/SL)* 15 ML BTL PO PRN ×2 (00:39→07:50)
[2017-05-26] MEDS: Morphine PCA 5 MG/ML * Titrate per Protocol PCA SCH ×2 (04:03→04:04)
--- NOTE | 2017-05-26 11:33 | CARD ---
PACEMAKER INTERROGATION AND REPROGRAMMING NOTE: DATE OF PACEMAKER INTERROGATION: 05/26/17 PROCEDURE IN DETAIL: The child specialist asked that the pacemaker function be turned off/minimized as the patient is DNR in the process of dying. The patient has a [place] XL DR Model 42231, Number [id number]. She had been programmed in DDD mode with a low rate of 60 beats/minute. I changed the parameters to VVI and decreased the amplitude to 0, and pulse width to minimum and there was no longer capture and the patient became asystolic. CONCLUSION: Pacemaker reprogramming to noncapture. [id number]/[facility] #: [id number] EMERY
--- NOTE | 2017-05-26 18:11 | DS ---
SUMMARY: DATE OF ADMISSION: 05/25/17 DATE OF DEMISE: 05/26/17 HOSPITAL COURSE: This patient was an 87-year-old white female who was admitted from [facility] with septic shock and multiorgan failure. Origin of the sepsis was presumed to be the urinary tract, because the patient had urinary retention with marked bladder distention on admission. The patient had been a DNR and DNI and had requested fluids and antibiotics only. The patient was subsequently started on antibiotics and given volume resuscitation with crystalloid fluids. The patient's clinical condition continued to deteriorate and the morning after admission, the patient's daughter requested comfort measures only, which the daughter stated were the stated wishes of the patient for this situation. All supports were subsequently withdrawn except for opiate and benzodiazepine infusions, which were adjusted to achieve comfort. The patient subsequently was pronounced on the morning of 05/26/17 at 9:20 a.m. The patient's daughter was notified by phone and an autopsy was denied. FINAL DIAGNOSES: 1. Septic shock (presumably of urinary origin). 2. Multiorgan failure (renal, neurologic, hepatic and hematologic). 3. Atrial fibrillation. 4. Status post pacemaker placement (which was turned off when the patient was pronounced ). [id number]/[facility] #: [id number] MTDD
== END 2017-05-26 09:20 | disposition expired | DRG 871 ==
LOC: ED 02:27 → ICU 05:03
PROVIDERS: ADMIT Hospitalist; ATTEND Internal Medicine Critical Care Medicine
DX: A41.1 Sepsis due to other specified staphylococcus (principal); R65.21 Severe sepsis with septic shock; K72.00 Acute and subacute hepatic failure without coma; N17.0 Acute kidney failure with tubular necrosis; G92 Toxic encephalopathy; N39.0 Urinary tract infection, site not specified; I48.91 Unspecified atrial fibrillation; E87.5 Hyperkalemia; E46 Unspecified protein-calorie malnutrition; B96.20 Unspecified Escherichia coli [E. coli] as the cause of diseases classified elsewhere; Z66 Do not resuscitate; I44.7 Left bundle-branch block, unspecified; L40.9 Psoriasis, unspecified; M54.16 Radiculopathy, lumbar region; M54.30 Sciatica, unspecified side; Z95.0 Presence of cardiac pacemaker; Z79.1 Long term (current) use of non-steroidal anti-inflammatories (NSAID); Z79.52 Long term (current) use of systemic steroids; Z79.899 Other long term (current) drug therapy; Z87.891 Personal history of nicotine dependence; R74.8 Abnormal levels of other serum enzymes; Z68.25 Body mass index [BMI] 25.0-25.9, adult
CPT/HCPCS: 36415; 70450; 71010; 74176; 80048; 80053; 80320; 80329; 81003; 81015; 82140; 82550; 82553; 83605; 83690; 83735; 83880; 84134; 84443; 84484; 85025; 85379; 85610; 85730; 86140; 87040; 87077; 87086; 87150; 87186; 87205; 87641; 93005; 94760; A9270-GY; G0480; J0610; J0696; J2060; J2270